=== PATIENT | male | born 1970 | race Caucasian/White ===

== ENCOUNTER 2024-11-07 08:56 | Emergency (ER) | payer BC, SELFPAY ==
[2024-11-07 08:57] VITALS: BP 160/94
--- NOTE | 2024-11-07 09:54 | ED.GENMED ---
History of Present Illness
General
Chief Complaint: Fall
Source: patient
Time Seen by Provider: 11/07/24 09:40
History of Present Illness
History of Present Illness:
54-year-old male presents to the emergency room complaining of multiple injuries after a fall on , 4 days ago. Patient states he was scaling a silver to go silver diving in [place] when he lost his balance and fell. The patient's
description of the fall indicates that while following he began to contact out cropping rocks and pushed off ultimately landing in the water. He felt as if his left shoulder was dislocated. He 'popped it back in'. Over the course of some period
of time he he describes his shoulder 'popping in and out'. Over the past couple days however his shoulder has remained stable. He presents today for evaluation of the pain to make sure he has not broken anything. Patient also complaining of left
ankle pain but is weightbearing. He has been wearing a compression type device to help support his ankle. Additionally the patient is complaining of some left anterior chest pain. No shortness of breath.
Past History
Past History
ED Past Medical History: GERD, HTN and Hypercholesterolemia
ED Past Surgical History: None, Orthopedic and Other (Hemorrhoidectomy)
Social History
Tobacco: Non-smoker
Drug: None
Personal:
Living: with family
Phy Exam
Physical Exam
Physical Exam:
General: Awake, Alert, Oriented X3. No acute distress.
Vitals: unremarkable
Head: Atraumatic
Eyes: Pupils equal, EOMI
Throat: Airway intact, no exudates
Neck: Trachea midline
Chest: Tenderness palpation over the left anterior chest wall
Lungs: Clear and equal b/l
Heart: Regular rate, no murmurs
Abd: Soft, Nontender, No pulsatile mass
Neuro: Nonfocal
Skin: Warm, dry, no rash
Extremities: pulses equal b/l, no edema. Left shoulder has tenderness palpation diffusely. The shoulder itself appears stable. He has discomfort with range of motion in all directions of the left shoulder.
Left ankle is mildly tender diffusely. No bony tenderness. Patient is weightbearing.
Course
Orders/Labs/Results
Orders:
Orders
11/07/24 09:02
CR Ankle - Left Min 3 Views Urgent
Comment:
Reason For Exam: Trauma
CR Shoulder, Trauma - Left Urgent
Comment:
Reason For Exam: Trauma
11/07/24 09:55
Ibuprofen [Motrin] 600 mg PO NOW STA
CR Chest - 2 Views Urgent
Comment:
Reason For Exam: chest pain, recent fall
Vital Signs
Initial and Last Documented VS:
Initial Vital Signs
Temp Pulse Resp BP Pulse Ox
98.4 F 77 16 160/94 97
11/07/24 08:57 11/07/24 08:57 11/07/24 08:57 11/07/24 08:57 11/07/24 08:57
Last Documented Vital Signs
Temp Pulse Resp BP Pulse Ox
98.4 F 77 16 160/94 97
11/07/24 08:57 11/07/24 08:57 11/07/24 08:57 11/07/24 08:57 11/07/24 09:55
MDM/Problems Addressed
Differential Diagnosis Includes:
Humeral head fracture, shoulder sprain, ankle fracture, ankle sprain, chest wall contusion
MDM/Problems Addressed:
Imaging shows no acute bony abnormality. Follow-up with Ortho as an outpatient. NSAIDs for pain.
*Radiology
Radiology exam reviewed: preliminary read by ED provider (No fracture noted on my review of the patient's x-rays)
*Pulse Oximetry
SaO2: 97
Oxygen Mode of Delivery: Room air
Patient hypoxic: no
*Critical Care Note
Total Time (30-74mins, 75-104mins- exclusive of procedures): Not Applicable
ED Attending Note
-
Portions of this chart may have been created with voice recognition software.� Occasional wrong word or��sound alike� substitutions may have occurred due to the inherent limitations of voice recognition software.
Discharge Plan
Departure
Patient Disposition: Home (Routine Discharge)
Date of Disposition: 11/07/24
Time of Disposition: 11:22
Patient with high blood pressure during this ER visit?: Yes
Condition: Good
Discharge Problem:
Sprain of left shoulder, Left ankle sprain, Chest wall contusion
Instructions: Ankle sprain - ED discharge instructions, Shoulder pain - ED discharge instructions
Prescriptions:
No Action
atorvastatin 40 MG tablet
40 mg PO DAILY
aspirin 81 MG tablet,delayed release (DR/EC)
81 mg PO DAILY
esomeprazole magnesium [Nexium] 40 MG capsule,delayed release(DR/EC)
40 mg PO DAILY@1100
hydrochlorothiazide 12.5 MG tablet
12.5 mg PO DAILY
acetaminophen 325 MG tablet
650 mg PO Q4HPRN PRN (Reason: headaches)
ibuprofen [Advil] 200 MG tablet
400 mg PO HSPRN PRN (Reason: mild pain )
albuterol sulfate 1 PUFF HFA aerosol inhaler
2 puff inhalation R Q4HPRN PRN (Reason: SOB)
psyllium husk [Metamucil Fiber (aspartame)] 1 PACKET powder in packet
1 packet PO DAILY
Referrals:
Frandy Guzman MD [Active, Orthopedics]
Arpan Lawton MD [Family Provider, Family Practice]
Interventions
Interventions:
*Nursing Disposition Last Done: 11/07/24 12:36
ED-Musculoskeletal Assessment Last Done: 11/07/24 09:47
ED- Neurological Assessment Last Done: 11/07/24 09:47
ED-Skin Assessment Last Done: 11/07/24 09:47
Discharge Date and Time
Discharge Date/Time: 11/07/24 12:37
Print Language: GREENLANDIC
[2024-11-07] MEDS: MOTRIN 600 MG PO (10:30)
== END 2024-11-07 12:37 | disposition home or self-care (01) ==
LOC: EMR 08:56
PROVIDERS: EMERGENCY PHYSICIAN Emergency Medicine; FAMILY PHYSICIAN Family Medicine
DX: S43.402A Unspecified sprain of left shoulder joint, initial encounter (principal); S20.219A Contusion of unspecified front wall of thorax, initial encounter; S93.402A Sprain of unspecified ligament of left ankle, initial encounter; W01.0XXA Fall on same level from slipping, tripping and stumbling without subsequent striking against object, initial encounter; K21.9 Gastro-esophageal reflux disease without esophagitis; I10 Essential (primary) hypertension; E78.00 Pure hypercholesterolemia, unspecified
CPT/HCPCS: 99283; 71046; 73030; 73610